=== PATIENT | male | born 1970 | race Caucasian/White ===

== ENCOUNTER 2018-09-15 10:37 | Emergency (ER) | payer OTHER ==
[~2018-09-15] VITALS: Ht 172.7 cm; Wt 103.7 kg
--- NOTE | 2018-09-15 11:12 | NUR ---
C/O HIGH BLOOD PRESSURE; LAST NOC 190'S. TOOK HTN LAST NOC. C/O HA. WOODS CP, N/V. LAST ORAL INTAKE: WATER DURING THE NIGHT, DINNER YESTERDAY. Addendum: 09/15/18 at 1144 by KENDRA PT A&OX4, RESP EVEN & UNLABORED, SPEECH CLEAR, SKIN WNL
[2018-09-15] MEDS ORDERED: ASPI-496 PO (11:18)
[2018-09-15] MEDS ORDERED: ESCI20TA PO (11:18)
[2018-09-15] MEDS ORDERED: LOSA1TAB25 PO (11:18)
[2018-09-15] MEDS ORDERED: METOCLOPRAMIDE 5 MG/ML, 2ML ONE (11:23)
[2018-09-15] MEDS ORDERED: DIPHENHYDRAMINE 50 MG/ML, 1ML ONE (11:23)
[2018-09-15] MEDS ORDERED: KETOROLAC 30 MG/1 ML ONE (11:23)
[2018-09-15] MEDS ORDERED: DIPHENHYDRAMINE 50 MG/ML, 1ML IVPush ONE (11:30)
[2018-09-15] MEDS ORDERED: KETOROLAC 30 MG/1 ML IVPush ONE (11:30)
[2018-09-15] MEDS ORDERED: METOCLOPRAMIDE 5 MG/ML, 2ML IVPush ONE (11:30)
[2018-09-15 11:36] LABS: BASOPHILS # (AUTO) 0.03 x10^3/uL (0-0.1); BASOPHILS % (AUTO) 0 % (0-1); EOSINOPHILS # (AUTO) 0.03 x10^3/uL (0-0.4); EOSINOPHILS % (AUTO) 0 % (1-7); LYMPHOCYTES # (AUTO) 1.16 x10^3/uL (1-3.4); LYMPHOCYTES % (AUTO) 15 % (22-44); MD NO; MEAN CORPUSCULAR VOLUME 97.3 fL (81-97); MEAN PLATELET VOLUME 8.3 fL (7.4-10.4); MONOCYTES # (AUTO) 0.47 x10^3/uL (0.2-0.8); MONOCYTES % (AUTO) 6 % (2-9); NEUTROPHILS # (AUTO) 6.26 x10^3/uL (1.8-6.8); NEUTROPHILS % (AUTO) 79 % (42-75); PLATELET COUNT 195 x10^3/uL (130-400); RED BLOOD COUNT 5.46 x10^6/uL (4.38-5.82); RED CELL DISTRIBUTION WIDTH 13.8 % (9.4-14.8)
--- NOTE | 2018-09-15 11:43 | NUR ---
MEDS GIVEN PER EMAR. PT RESTING, SEMI-FOWLERS W/ SIDE RAILS UP X2, CALL LIGHT W/IN REACH, CARDIAC & VS MONITORING CONTINUES.
[2018-09-15 11:44] LABS: INTERNATIONAL NORMALIZED RATIO 1.08 (0.93-1.1); PROTHROMBIN TIME 11.4 Seconds (9.6-11.5)
[2018-09-15 11:46] LABS: ALBUMIN 3.9 g/dL (3.4-5.0); ANION GAP 12 mmol/L (5-15); CHLORIDE 100 mmol/L (98-107)
[2018-09-15 11:51] LABS: CREATININE 0.78 mg/dL (0.7-1.3); TROPONIN I < 0.015 ng/mL (0.000-0.045)
[2018-09-15 13:22] VITALS: BP 129/87
== END 2018-09-15 13:35 | disposition home or self-care (01) ==
LOC: ED 12:58
DX: G44.219 Episodic tension-type headache, not intractable (principal); I10 Essential (primary) hypertension
CPT/HCPCS: 36415; 71045; 80048; 82040; 84484; 85025; 85610; 85730; 93005; 96374; 96375; 99284; J1200; J1885; J2765